=== PATIENT | female | born 2000 ===

== ENCOUNTER 2019-01-27 16:48 | Emergency (ER) | payer SELFPAY ==
[2019-01-27 16:53] VITALS: BMI 27.8
[2019-01-27 16:56] VITALS: O2SAT 100
--- NOTE | 2019-01-27 17:30 | C.PDOC ---
History Of Present Illness Patient is a 18 year old female who presents to the ED for evaluation of concern of possible STD after having sexual intercourse 1 day ago. Patient states that while having intercourse the condom broke and she is concerned she caught something. She states that she asked her partner, but he denied any STD's. Patient is presently asymptomatic and denies any fevers, chills, , nausea, vomiting, vaginal discharge, urinary symptoms, or hx of STD's. No abdominal pain. No other complaints at this time. Time Seen by Provider: 01/27/19 17:05 Chief Complaint (Nursing): Female Genitourinary History Per: Patient History/Exam Limitations: no limitations Onset/Duration Of Symptoms: Days (1) Current Symptoms Are (Timing): Still Present Associated Symptoms: denies: Fever, Chills, Nausea, Vomiting, Urinary Symptoms Recent travel outside of the [place]: No Additional History Per: Patient Past Medical History Reviewed: Historical Data, Nursing Documentation, Vital Signs Vital Signs: Last Vital Signs Temp 99.2 F 01/27/19 16:52 Pulse 81 01/27/19 16:52 Resp 18 01/27/19 16:52 BP 131/90 01/27/19 16:52 Pulse Ox 100 01/27/19 16:52 Primary Care Provider: Ghanshyam Cabrera - Medical History PMH: No Chronic Diseases Surgical History: No Surg Hx Family History: States: No Known Family Hx - Social History Hx Alcohol Use: No Hx Substance Use: No Review Of Systems Except As Marked, All Systems Reviewed And Found Negative. Constitutional: Negative for: Fever, Chills Gastrointestinal: Negative for: Nausea, Vomiting Genitourinary: Negative for: Dysuria, Hematuria, Vaginal Discharge Physical Exam - Physical Exam Appears: Well, Non-toxic, No Acute Distress Skin: Warm, Dry Head: Atraumatic, Normacephalic Eye(s): bilateral: Normal Inspection Chest: Symmetrical, No Deformity Cardiovascular: Rhythm Regular, No Murmur Respiratory: Normal Breath Sounds, No Rales, No Rhonchi, No Wheezing Gastrointestinal/Abdominal: Soft, No Tenderness, No Guarding Neurological/Psych: Oriented x3, Normal Speech, Normal Cognition ED Course And Treatment O2 Sat by Pulse Oximetry: 100 (on RA) Pulse Ox Interpretation: Normal Medical Decision Making Medical Decision Making: Plan: UA, urine preg and GC/chlamydia test ordered. Discussed treatment options with patient.She is concerned for HIV. [facility] Hotline [phone] for recommendations for patient. They will call back. Discussed treatment options for potential GC/Chlamydia. Patient requesting to be treated with Rocephin and Azithromax for possible GC Chlamydia exposure and not wait for the results. 01/27/191729 I spoke with Jim, from the [facility] hotline, ID specialist. Who states the risk is very low and the risk of taking the medication may outweigh the benefit of the medication for prophylactic treatment of HIV. States if patient wants to take medication then would give Truvada 1 pill daily x 28 days and then Raltegravir 400mg BID x 28 days. Recommends baseline CMP and baseline HIV testing if patient decides she wants medication. Also recommends followup with repeat lab testing in 6 weeks and then 4 months regardless if she wants testing.. 01/27/191734 Patient updated on recommendations. Now stating that no semen was actually involved and that she was beginning to have intercourse and when the penis was being inserted, the condom broke. Therefore, she is aware of the risk of the medication and that she is low risk so she does not want prophylactic medication for HIV. POC negative. Patient wants prophylactic tx for GC/C with 250mg IM rocephin and 1g azithromycin.Advised to follow-up with PMD and ID/STD clinic. Aware she needs to be checked for HIV/hepatitis in 6 weeks and then again in 4 months. Will return with any fevers, vaginal discharge, urinary symptoms, abdominal pain. Disposition Counseled Patient/Family Regarding: Studies Performed, Diagnosis, Need For Followup - Disposition Referrals: Ghanshyam Cabrera MD [Staff Provider] - Justin Waters MD [Medical Doctor] - Ciro Abraham MD [Staff Provider] - Disposition: HOME/ ROUTINE Disposition Time: 18:41 Condition: GOOD Additional Instructions: Follow-up with your PMD and ID doctor. You should have repeat STD testing in 6 weeks and then 4 months. Return if symptoms develop. Instructions: Post-Exposure Prophylaxis Forms: [facility] (Ukrainian), General Discharge Instructions Print Language: CITIZEN OF [place] - Clinical Impression Clinical Impression: Concern about STD in female without diagnosis - PA / CHANGE NUMBER OPERATOR / Resident Statement MD/DO has reviewed & agrees with the documentation as recorded. - Scribe Statement The provider has reviewed the documentation as recorded by the Lubna Rodriguez All medical record entries made by the Lubna were at my direction and personally dictated by me. I have reviewed the chart and agree that the record accurately reflects my personal performance of the history, physical exam, medical decision making, and the department course for this patient. I have also personally directed, reviewed, and agree with the discharge instructions and disposition.
[2019-01-27 17:59] LABS: SQUAMOUS EPITHIAL 6 /hpf (0-5); URINE BACTERIA RARE (<OCC); URINE BILIRUBIN NEGATIVE (NEGATIVE); URINE BLOOD NEGATIVE (NEGATIVE); URINE CLARITY Hazy (Clear); URINE COLOR Yellow (YELLOW); URINE GLUCOSE (UA) NORMAL (Normal); URINE LEUKOCYTE ESTERASE 1+ Leu/uL (Negative); URINE PROTEIN NEGATIVE (NEGATIVE); URINE UROBILINOGEN NORMAL mg/dL (0.2-1.0)
[2019-01-27] MEDS ORDERED: cefTRIAXone 250 MG, Lidocaine Hydrochloride 1% 1 ML IM STA (18:25)
[2019-01-27 19:13] VITALS: BP 119/85; PULSE 75; RESP 20; TEMP 98.9
== END 2019-01-27 19:13 | disposition home or self-care (01) ==
LOC: C.ER 16:48
DX: Z11.3 Encounter for screening for infections with a predominantly sexual mode of transmission (principal)
CPT/HCPCS: 81001; 81025; 87491; 87591; 96372; 99284; J0696